=== PATIENT | male | born 2005 | race Caucasian/White ===

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

== ENCOUNTER 2024-01-01 08:14 | Emergency (ER) | payer SELFPAY ==
[2024-01-01 08:18] VITALS: BP 123/76; PULSE 92; RESP 18; TEMP 36.4; O2SAT 100
--- NOTE | 2024-01-01 08:54 | W.ED.GENAD ---
HPI General Mode of arrival: ambulatory. Date/Time Provider Initiated Documentation: 01/01/24 08:36. Limitations to Documentation: no limitations. Information obtained by: patient. HPI Narrative: 18-year-old male presents with chief complaint of nausea and vomiting. Patient notes nausea and vomiting that started early this morning around 1 AM and has persisted. Symptoms are constant. No modifiers. Patient notes generalized abdominal pain over the same period of time. No associated fever. No loose stool. Related Data Home Medications Medication Instructions Recorded Confirmed inhalational spacing device #2 ea 06/10/17 01/01/24 (Vortex Holding Chamber with Child Mask) albuterol sulfate 90 mcg/actuation 2 puff inhalation Q4H PRN ##1 10/14/18 01/01/24 aerosol inhaler (ProAir HFA) cetirizine 10 mg tablet 10 mg PO DAILY PRN allergy 06/27/22 01/01/24 symptoms #90 tab-caps ondansetron 4 mg disintegrating 4 mg PO Q8H PRN nausea and 01/01/24 tablet vomiting #10 tabs Previous Rx's Medication Instructions Recorded albuterol sulfate 90 mcg/actuation 2 puff inhalation Q4H PRN ##1 10/14/18 aerosol inhaler (ProAir HFA) cetirizine 10 mg tablet 10 mg PO DAILY PRN allergy 06/27/22 symptoms #90 tab-caps ondansetron 4 mg disintegrating 4 mg PO Q8H PRN nausea and 01/01/24 tablet vomiting #10 tabs Allergies Allergy/AdvReac Type Severity Reaction Status Date / Time cat dander Allergy Verified 01/01/24 08:22 No Known Drug Allergies Allergy Verified 01/01/24 08:22 Seasonal/Environmental Allergy Uncoded 01/01/24 08:22 allergies General Stated Complaint: Nausea/Vomit/Diar CARIDAD: 3 Review of Systems All systems reviewed & are unremarkable except as noted in HPI and below Constitutional Constitutional: Denies fever(s) Gastrointestinal Gastrointestinal: Reports as per HPI Exam Const General: cooperative and no acute distress HENMT Mouth: mucous membranes dry Eyes Conjunctivae: normal conjunctivae Sclera: normal sclerae Resp Auscultation: clear to auscultation bilaterally, no rales, no rhonchi and no wheezes Cardio Rate: regular rate and not tachycardic Rhythm: regular rhythm GI Palpation: soft, not firm, no guarding, no masses, not rigid and tender (diffuse) Skin General skin exam: no rashes or lesions noted Neuro General: patient alert, patient awake and tone normal Extrem General: no edema Course Vital Signs Vital signs: Vital Signs Temperature 36.4 C 01/01/24 08:18 Pulse 92 H 01/01/24 08:18 Respiratory Rate 18 01/01/24 08:18 Blood Pressure 123/76 01/01/24 08:18 Pulse Oximetry 100 01/01/24 08:18 Temperature 36.4 C 01/01/24 08:18 Temperature Source Skin 01/01/24 08:18 Pulse 92 H 01/01/24 08:18 Respiratory Rate 18 01/01/24 08:18 Respiratory Effort Normal, Non-Labored 01/01/24 08:22 Blood Pressure 123/76 01/01/24 08:18 Blood Pressure Position Sitting 01/01/24 08:18 Pulse Oximetry 100 01/01/24 08:18 Oxygen Delivery Method Room Air 01/01/24 08:18 Oxygen Flow Rate 0 01/01/24 08:18 Pain Level 7 01/01/24 08:18 Medical Decision Making 857??18-year-old male here with nausea and vomiting at 1 AM with associated abdominal discomfort. Patient actively vomiting. Diffuse abdominal tenderness with no peritoneal findings. Patient is hemodynamically stable. Patient does appear dehydrated. I will give Zofran IV and IV fluid bolus and plan to reassess. Labs to assess for electrolyte abnormalities, biliary and pancreatic disease. --Patient reassessed and nausea initially improved with Zofran but then returned. He was given droperidol 1.25 mg. Labs reviewed and leukocytosis noted. 1255 --patient reassessed and feeling much better. Tolerating p.o. fluids. Patient requesting to be discharged. Abdomen reexamined. He continues to have diffuse abdominal tenderness although much improved. No focal tenderness. No peritoneal findings. I reviewed results with the patient. I advised to return immediately should he have any worsening abdominal pain or any focal abdominal pain. He understands he should return should he not be able to tolerate oral fluids. Usual customary discharge instructions were reviewed. Lab Data Lab results reviewed: Yes I reviewed the patient's lab results. Labs: Laboratory Tests Range/Units 01/01/24 01/01/24 08:32 08:32 WBC (4.4-10.8) 10^3/uL 15.91 H RBC (4.36-5.78) 10^6/uL 5.57 Hgb (13.5-17.5) g/dL 16.4 Hct (40.0-50.0) % 47.6 MCV (80-95) fL 86 MCH (27.0-33.0) pg 29.4 MCHC (32.0-36.0) % 34.5 RDW (11.8-14.1) % 12.1 Plt Count (130-400) 10^3/uL 296 MPV (8.0-11.0) fL 9.1 Immature Gran % 0.4 Neutrophils % 87.5 Lymphocytes % 5.0 Monocytes % 6.3 Eosinophils % 0.5 Basophils % 0.3 Nucleated RBC % (0.0-0.3) % 0.0 Absolute Neutrophils (1.2-6.7) 10^3/uL 13.92 H Absolute Lymphocytes (1.2-3.4) 10^3/uL 0.80 L Absolute Monocytes (0.1-0.8) 10^3/uL 1.00 H Absolute Eosinophils (0.0-0.7) 10^3/uL 0.08 Absolute Basophils (0.0-0.2) 10^3/uL 0.05 Sodium (136-145) mmol/L 141 Potassium (3.5-5.1) mmol/L 4.2 Chloride (98-107) mmol/L 103 Carbon Dioxide (21.0-32.0) mmol/L 27.6 Anion Gap (3-11) mmol/L 10.4 BUN (7-18) mg/dL 18 Creatinine (0.70-1.30) mg/dL 0.8 Est GFR (CKD-EPI 2020) (mL/min/1.73m2) 130.74 Glucose (74-106) mg/dL 118 H Calcium (8.5-10.1) mg/dL 9.6 Magnesium (1.8-2.4) mg/dL 2.2 Total Bilirubin (0.2-1.0) mg/dL 0.7 AST (15-37) U/L 36 ALT (16-63) U/L 23 Alkaline Phosphatase (46-116) U/L 85 Total Protein (6.4-8.2) g/dL 8.4 H Albumin (3.4-5.0) g/dL 4.4 Lipase (16-77) U/L 19 Cancelled Quality:[facility] Health Related Social Needs: No Data to Display PFSH All Active Problems (Updated 01/01/24 @ 13:00 by Walt Rosario MD) Abdominal pain (Acute) Nausea & vomiting (Acute) Gastroenteritis (Acute) Depression (Chronic) Head injury, closed (Acute) Allergic rhinitis (Acute 06/25/16) dx by [facility] vice president biostatistics positive skin test for dust mites, grass, cats, tree, weeds, mild and leaf mold Mild persistent asthma without complication (Acute 06/25/16) dx by [facility] vice president biostatistics Adopted (Chronic 02/02/14) By aunt in 2008 Surgical History Myringotomy w/ PE (pressure equalizing) tubes Circumcision Family History Mother Substance abuse Father Asthma Other Substance abuse Diabetes maternal side Asthma MGM Social History Smoking/Tobacco Use Status: Never Second Hand Exposure: Yes Smoking risk assessment performed?: Yes Alcohol Intake: never Drug use: Daily Substance use type: marijuana Education Level: high school Details: [employer] Pets and animals: Yes Pets and animals: cat(s) and dog(s) Seatbelt use: always Helmet use: Yes Helmet use: always Water heater temp set <120 deg: Yes Fire extinguisher in home: Yes Carbon monox detector in home: Yes Firearms in home: No Do you feel safe at home: Yes Do you feel safe in your relationship?: Yes Discharge Plan Disposition Patient Disposition: Home Condition: Stable Discharge Details Clinical Impression: Gastroenteritis, Nausea & vomiting, Abdominal pain Primary Care Provider: Ashutosh Méndez ED Provider: Walt Rosario Home Meds and New Rx's Prescriptions: New ondansetron 4 mg tablet,disintegrating 4 mg PO Q8H PRN (Reason: nausea and vomiting) Qty: 10 0RF Continued cetirizine 10 mg tablet 10 mg PO DAILY PRN (Reason: allergy symptoms) Qty: 90 0RF Rx Instructions: Take 1 tablet by mouth daily. (Evening) (DME) Vortex Holding Chamber Child 1 EACH spacer 1 ea Miscellaneous PRN Qty: 2 Rx Instructions: 1 for mom, 1 for dad Use as directed with inhalers daily. albuterol sulfate [ProAir HFA] 90 mcg/actuation HFA aerosol inhaler 2 puff Inhalation Q4H PRN Qty: 1 3RF Rx Instructions: 2 puffs every 4 hours as needed for wheeze, cough or shortness of breath. Discharge Instructions Instructions: Gastroenteritis (ED), Acute Nausea and Vomiting (ED) Additional Instructions: Please drink small amounts of clear fluid frequently in order to stay hydrated. Please contact your primary care physician to arrange follow-up. Return to the ER immediately for any worsening or new concerning symptoms. Referrals: Ashutosh Méndez MD [Primary Care Provider] - Discharge Data Discharge Date/Time-TO BE ENTERED AT DEPARTURE: 01/01/24 13:22
[2024-01-01] MEDS: Ondansetron 4 MG/2 ML VIAL IVP (08:57)
[2024-01-01] MEDS: Lactated Ringers 1,000 ML 1000 ML IV (08:57)
[2024-01-01 09:01] LABS: Abs Immature Grans 0.07 10^3/uL (0.0-0.06); Absolute Eosinophil Count 0.08 10^3/uL (0.0-0.7); Absolute Neutrophil Count 13.92 10^3/uL (1.2-6.7); Basophils % 0.3; Eosinophils % 0.5; HCT 47.6 % (40.0-50.0); HGB 16.4 g/dL (13.5-17.5); Immature Grans % 0.4; MCH 29.4 pg (27.0-33.0); MCHC 34.5 % (32.0-36.0); MCV 86 fL (80-95); MPV 9.1 fL (8.0-11.0); Monocytes % 6.3; Neutrophils % 87.5; Platelet Count 296 10^3/uL (130-400); RBC 5.57 10^6/uL (4.36-5.78); RDW 12.1 % (11.8-14.1); RDW-SD 37.5 fL; WBC 15.91 10^3/uL (4.4-10.8)
[2024-01-01 09:02] LABS: Absolute Basophil Count 0.05 10^3/uL (0.0-0.2)
[2024-01-01 09:17] LABS: ALT 23 U/L (16-63); AST 36 U/L (15-37); Albumin 4.4 g/dL (3.4-5.0); Alkaline Phosphatase 85 U/L (46-116); Anion Gap 10.4 mmol/L (3-11); BUN 18 mg/dL (7-18); Bilirubin, Total 0.7 mg/dL (0.2-1.0); CO2 27.6 mmol/L (21.0-32.0); CREATININE 0.8 mg/dL (0.70-1.30); Calcium 9.6 mg/dL (8.5-10.1); Chloride 103 mmol/L (98-107); Estimated GFR 130.74 (mL/min/1.73m2); Glucose 118 mg/dL (74-106); Lipase 19 U/L (16-77); Magnesium 2.2 mg/dL (1.8-2.4); Potassium 4.2 mmol/L (3.5-5.1); Sodium 141 mmol/L (136-145); Total Protein 8.4 g/dL (6.4-8.2)
[2024-01-01 10:03] VITALS: BP 90/39; PULSE 80; RESP 18; O2SAT 100
[2024-01-01 10:25] VITALS: BP 104/44
[2024-01-01 11:02] VITALS: BP 117/67
[2024-01-01] MEDS: DEXTROSE 5%-0.9% SALINE 1,000 ML 150 ML IV (11:25)
[2024-01-01] MEDS: Droperidol 5 MG/2 ML VIAL 1.25 MG IVP (11:25)
[2024-01-01 13:08] VITALS: BP 121/67; PULSE 90; RESP 16; TEMP 36.8; O2SAT 100
== END 2024-01-01 13:22 | disposition home or self-care (01) ==
PROVIDERS: Emergency Provider Student in an Organized Health Care Education/Training Program; PCP Pediatrics
DX: K52.9 Noninfective gastroenteritis and colitis, unspecified (principal); R10.84 Generalized abdominal pain; E86.0 Dehydration
CPT/HCPCS: 80053; 83690; 96361; 96374; 96375; 99284; 83735; 85025; 99283; J1790; J2405; J7042